=== PATIENT | male | born 1995 | race Caucasian/White ===

== ENCOUNTER 2017-03-21 23:02 | Emergency (ER) | payer BC ==
[~2017-03-21] VITALS: Ht 185.4 cm; Wt 88.0 kg
[2017-03-21 23:25] VITALS: TEMP 36.9; Ht 185.4 cm; Wt 88.0 kg
[2017-03-21] MEDS ORDERED: BUPIVACAINE 0.5 % 5 MG/1 ML MPF 30ML VIAL INFIL STA (23:35)
[2017-03-21] MEDS ORDERED: XYLOCAINE 1%/SOD BICARB 20 ML VIAL INFIL STA (23:35)
[2017-03-21] MEDS ORDERED: LISD40CA PO (23:48)
--- NOTE | 2017-03-22 00:38 | EMERGENCY ROOM VISIT NOTE ---
ED Visit Note First contact with patient: 23:29 Chief Complaint: "Bleeding right hand". History of Present Illness: This patient is a 21-year-old male who presents to the Emergency Department via private vehicle for evaluation of their right thumb laceration. Patient sustained the laceration while attempting to stop a toilet from overflowing, as the back water reservoir was broken, and he attempted to hold a piece together and it lacerated his right thumb. They report a moderate amount of bleeding initially. They deny any numbness or tingling into the distal extremity. They report no decreased range of motion of the affected digit.Patient rates his current discomfort as a 3/10. Patient's Tetanus status is believed to be currently up-to-date. Medications: As noted below Allergies: None PMH: No pertinent SHx: Patient is a [employer] student ROS: All pertinent positive and negative review of systems are appropriately documented in the History of Present Illness. Physical Exam: VITAL SIGNS - Vital signs and nursing notes were reviewed. Stable. GENERAL -21-year-old male appearing his stated age who is in no acute distress. Communicates well with provider and answers questions appropriately. SKIN - There is a 3 cm long laceration noted ventral aspect of the patient's right thumb overlying the finger pad in an oval shape. The edges gape apart with traction. No foreign bodies appreciated. Upon further examination there are no deep structures including vessel, tendon, or bony structures appreciated. There is mild active bleeding noted. MUSCULOSKELETAL - Laceration as described above. +5/5 strength appreciated of the affected digit. Full range of motion of the affected digit. NEUROLOGIC - Spinothalamic tract was found to be intact with ability to discriminate sharp versus dull sensation. No sensory defects of the dorsal column were appreciated utilizing light touch for evaluation. VASCULAR - Capillary refill was brisk. ED Course: Patient was seen and evaluated by myself. Risks and benefits of performing primary wound closure versus no repair were discussed with the patient who verbalizes understanding. Verbal consent was obtained prior to performing the procedure. 5 cc of 50/50 ratio of 1% buffered lidocaine, and 0.5% bupivacaine was used to perform a digital block of the right first digit. The wound was cleansed and prepped in the typical sterile fashion utilizing normal saline and Betadine. The wound was sterilely draped. Once proper anesthetization was established, the wound was further examined and demonstrated no deep involvement , with slight avulsion, but intact on the one edge and I believe it is best at this time to close rather than excise this region. Patient was informed that this may not heal back on, but is to protect. The wound was copiously irrigated with normal saline and Betadine. The wound was closed using 6 simple, 5-0 nylon sutures with the wound edges being well approximated. Patient tolerated the procedure well. No complications were met. The wound was cleansed and dressed with a Bacitracin dressing. A metal splint was applied to the finger for comfort. Patient received their Adacel vaccination. Patient educated on worrisome symptoms for return visit to the Emergency Department. Patient discharged to home in good condition. In evaluation treatment this patient the following differential diagnoses were entertained: Laceration, fracture, avulsion, among others. Current/Historical Medications Scheduled Lisdexamfetamine Dimesylate (Vyvanse), 40 MG PO DAILY Allergies Coded Allergies: No Known Allergies (Unverified , 03/21/17) Vital Signs Date Time Temp Pulse Resp B/P (MAP) Pulse Ox O2 Delivery O2 Flow Rate FiO2 03/22/17 00:47 94 193/106 98 03/21/17 23:25 36.9 103 18 161/103 98 Room Air Medications Administered Medications (Trade) Dose Ordered Sig/John Route Start Time Stop Time Status Last Admin Dose Admin Lidocaine HCl (Buffered Lidocaine 1% Inj) 20 ml ONE STAT INFIL 03/21/17 23:35 03/21/17 23:36 DC 03/21/17 23:48 20 ML Bupivacaine HCl (Marcaine 0.5% MPF Inj) 30 ml NOW STAT INFIL 03/21/17 23:35 03/21/17 23:36 DC 03/21/17 23:48 30 ML Departure Information Impression Primary Impression: Laceration Dispostion Home / Self-Care Condition GOOD Referrals [facility] (PCP) Patient Instructions [facility] Additional Instructions Discharge Instructions: You have received 6 sutures on your right thumb. These sutures are NOT dissolvable and WILL need to be removed by a health care provider in 12 days. You can return to the Emergency Department or contact your Primary Care Provider to have the sutures removed. Please wear the splint for comfort until the sutures are removed. Proper wound care is essential for adequate wound healing and infection prevention. You can shower and clean the wound with soap and water. Do not scour over the wound, pat dry with a towel. Do not submerse the wound (i.e. bathe or dish wash) until the sutures have been removed. You can use an antibiotic ointment with a dressing over the wound for the next 3-4 days. After this time you may leave the wound dry and open to the air. If crust develops over the wound you can use a Q-tip to apply a 1:1 peroxide:water solution to clean the wound. Look for signs of infection of the wound including: increased pain, swelling, foul discharge, streaking, or increased temperature. If any of these are noticed you should return to the Emergency Department for further assessment and treatment. As with any laceration you may have received nerve damage to the surrounding tissues. This damage may or may not be permanent. You should keep the area covered with sunscreen for the first 6 months to 1 year when at risk for exposure to help minimize scarring. You can also use scar reducing creams or Vitamin E oil to help minimize scarring. For pain control, you can use the following pysy-vap-[id number] medicines (if >12 yo): - Regular strength (325mg/tab) Tylenol (acetaminophen) 2 tabs every 4-6 hours as needed. Do not exceed 12 tablets in a 24 hour period. Avoid taking more than 3 grams (3000 mg) of Tylenol per day. This includes any other sources of acetaminophen you may take on a regular basis. - Regular strength (200 mg/tab) Advil (ibuprofen) 1-2 tabs every 4-6 hours as needed. Do not exceed a dose of 3200 mg per day. Return to the emergency department if your symptoms worsen despite treatment course outlined above.
[2017-03-22 00:47] VITALS: BP 193/106; PULSE 94; O2SAT 98
== END 2017-03-22 00:48 | disposition home or self-care (01) ==
LOC: C.EDB 23:04 → C.EDC 03-22 00:48
DX: S61.011A Laceration without foreign body of right thumb without damage to nail, initial encounter (principal); W45.8XXA Other foreign body or object entering through skin, initial encounter